=== PATIENT | male | born 1955 | race Caucasian/White ===

== ENCOUNTER 2020-08-24 14:13 | Emergency (ER) | payer MEDICARE, OTHER ==
[~2020-08-24] VITALS: Ht 177.8 cm; Wt 82.3 kg
[~2020-08-24 14:13] MED LIST: CYCLOBENZAPRINE10 MG PO; DICLOFENAC SODI75 MG PO; DOXEPIN HCL50 MG PO; HYDROCODON-ACE1 EAC8 PO; LISINOPRIL20 MG PO; VENTOLIN HFA18 GM INH; VITAMIN D250000 UNIT PO; ZOFRAN ODT4 MG PO
[2020-08-24] MEDS ORDERED: VENTOLIN HFA18 GM INH (14:57)
[2020-08-24] MEDS ORDERED: LIPITOR40 MG PO (15:55)
--- NOTE | 2020-08-25 20:35 | EKG ---
[facility] [address] [place] [address] Signed Normal sinus rhythm with sinus arrhythmia Normal ECG When compared with ECG of 05-MAR-2016 19:09, Vent. rate has decreased BY 43 BPM Confirmed by MALIKA MONTEIRO DO ([id number]) on 08/25/2020 8:34:59 PM Electronically Signed By: MALIKA MONTEIRO DO 08/25/202034 PATIENT NAME: LIN MANRIQUE MARIKA Electrocardiogram DATE OF : 57 PHYSICIAN: MALIKA MONTEIRO DO REPORT #: [id number] REPORT IS CONFIDENTIAL AND NOT TO BE RELEASED WITHOUT AUTHORIZATION
== END 2020-08-24 16:42 | disposition home or self-care (01) ==
LOC: ED 14:13
DX: I63.9 Cerebral infarction, unspecified (principal); I10 Essential (primary) hypertension; J44.9 Chronic obstructive pulmonary disease, unspecified; F17.200 Nicotine dependence, unspecified, uncomplicated
CPT/HCPCS: 70450; 70496; 70498; 71045; 80053; 80061; 83036; 84484; 85025; 85610; 85730; 93005; 93010; 99284-25; Q9967

== ENCOUNTER 2020-09-12 20:28 | Emergency (ER) | payer MEDICARE, OTHER ==
[~2020-09-12] VITALS: Ht 177.8 cm; Wt 81.7 kg
[~2020-09-12 20:28] MED LIST changes: +LIPITOR40 MG PO
--- OUTSIDE RECORDS SUMMARY | 2020-09-12 22:26 | XMS ---
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 Nely VISIT COUNT ([address] [facility] TOTAL 2 NOTE: Visits indicate total known visits. ED/C VISIT TRACKING (12 MO.) 09/12/2020 20:28 [facility] TYPE: Emergency COMPLAINT: - FALL 08/24/2020 14:13 [facility] TYPE: Emergency COMPLAINT: - POSS STROKE DIAGNOSES: - Anesthesia of skin - Chronic obstructive pulmonary disease, unspecified - Cerebral infarction, unspecified - Nicotine dependence, unspecified, uncomplicated - Essential (primary) hypertension INPATIENT VISIT TRACKING (12 MO.) No inpatient visits to display in this time frame [email or web address]
== END 2020-09-12 23:42 | disposition home or self-care (01) ==
LOC: ED 20:28
DX: S16.1XXA Strain of muscle, fascia and tendon at neck level, initial encounter (principal); S39.012A Strain of muscle, fascia and tendon of lower back, initial encounter; S40.012A Contusion of left shoulder, initial encounter; S70.12XA Contusion of left thigh, initial encounter; W18.42XA Slipping, tripping and stumbling without falling due to stepping into hole or opening, initial encounter; I10 Essential (primary) hypertension; J44.9 Chronic obstructive pulmonary disease, unspecified; F17.200 Nicotine dependence, unspecified, uncomplicated; Z88.5 Allergy status to narcotic agent; Z79.899 Other long term (current) drug therapy
CPT/HCPCS: 70450; 72100; 72125; 73030; 73552; 99284-25

== ENCOUNTER 2021-03-29 01:38 | Inpatient (IN) | payer MEDICARE, OTHER ==
[~2021-03-29] VITALS: Ht 177.8 cm; Wt 82.3 kg
--- NOTE | 2021-03-29 07:00 | NUR ---
BEDSIDE REPORT RECEIVED FROM CHELO ESCUDERO AT THIS TIME. PT ALERT AND ORIENTED. LEVOPHED INFUSING AT 5MCG/MIN UPON ARRIVAL. PT SPO2 = 100% ON ROOM AIR. THIS RN REMAINS AT BEDSIDE FOR INITIAL INTAKE ASSSESSMENT.
--- NOTE | 2021-03-29 07:46 | NUR ---
INITIAL ASSESSMENT COMPLETED. PT ALERT AND ORIENTED. LUNGS SOUND CLEAR THROUGHOUT. PT NOW ON ROOM AIR WITH SPO2=96%. HEART RATE 100-115 AT REST. BLOOD PRESSURES SYSTOLICALLY OVER 100. LEVOPHED DRIP ON STAND BY AT THIS TIME. SKIN INTACT. ALL DISTAL PULSES STRONG. PT DENIES PAIN, NAUSEA, OR DISCOMFORT. PLAN OF CARE ESTABLISHED. CALL LIGHT WITHIN REACH. WILL CONTINUE TO MONITOR.
[2021-03-29] MEDS ORDERED: METOPROLOL TART25 MG PO (08:10)
--- NOTE | 2021-03-29 09:00 | NUR ---
BREAKFAST ORDERED. VANCOMYCIN NOW INFUSING (SEE EMAR) ALONG WITH IV FLUIDS. CALL LIGHT WITHIN REACH. PT DENIES FURTHER NEEDS AT THIS TIME.
--- NOTE | 2021-03-29 09:15 | NUR ---
RT IN ROOM WITH PT AT THIS TIME TO GIVE BREATHING TX.
--- NOTE | 2021-03-29 09:23 | NUR ---
PT AMBULATED TO BATHROOM. STEADY ON HIS FEET. VOIDED 400 MLS OF CONCENTRATED URINE. PT NOW BACK IN BED EATING BREAKFAST. CALL LIGHT WITHIN REACH. WILL CONTINUE TO MONITOR.
[2021-03-29] MEDS ORDERED: CYCLOBENZAPRINE10 MG PO (09:46)
[2021-03-29] MEDS ORDERED: LEVOFLOXACIN500 MG PO (09:47)
--- NOTE | 2021-03-29 09:48 | NUR ---
MED REC COMPLETED BY PHARMACY
--- NOTE | 2021-03-29 12:21 | NUR ---
Patient assessment complete, patient denies pain at this time. Patient assisted with ambulation to the bathroom to void. Patient heart rate between 100-110 when ambulating. Patient is in bed eating lunch. Call light within reach. Will continue to monitor.
--- NOTE | 2021-03-29 12:24 | NUR ---
VANCOMYCIN COMPLETED. IV FLUIDS INFUSING, BOTH UNUSED LUMENS HEPARIN LOCKED. PT EATING LUNCH. DENIES PAIN OR DISCOMFORT. CALL LIGHT WITHIN REACH. WILL CONTINUE TO MONITOR.
--- NOTE | 2021-03-29 12:52 | EKG ---
[facility] [address] [place] [address] Signed Sinus tachycardia Otherwise normal ECG When compared with ECG of 24-AUG-2020 14:42, Vent. rate has increased BY 64 BPM Confirmed by MALIKA MONTEIRO DO ([id number]) on 03/29/2021 12:52:00 PM Electronically Signed By: MALIKA MONTEIRO DO 03/29/21 1252 PATIENT NAME: LIN MANRIQUE MARIKA Electrocardiogram DATE OF : 57 PHYSICIAN: MALIKA MONTEIRO DO REPORT #: [id number] REPORT IS CONFIDENTIAL AND NOT TO BE RELEASED WITHOUT AUTHORIZATION
--- NOTE | 2021-03-29 14:00 | NUR ---
STUDENT NURSE IN ROOM WITH PT AT THIS TIME. IV MEDICATIONS INFUSING (SEE EMAR). CALL LIGHT WITHIN REACH. PT DENIES PAIN OR DISCOMFORT. WILL CONTINUE TO MONITOR.
--- NOTE | 2021-03-29 14:00 | NUR ---
Spoke with Sanjana, who is now to me. He has moved from [place] in his camp trailer to [place]. His friend Roxanne has also moved her trailer there He needs a cane. Is able to walk very little due history of back injury. States he has prostate ca and recently underwent a biopsy. Plans on returning to his trailer in [place] when cleared medically. Only need is for a new cane. Will request orders for a cane.
--- NOTE | 2021-03-29 17:00 | NUR ---
PT EATING DINNER, IV FLUIDS INFUSING. CALL LIGHT WITHIN REACH. WILL CONTINUE TO MONITOR.
--- NOTE | 2021-03-29 17:35 | NUR ---
PT COMPLAINS OF HEADACHE, PRN TYLENOL GIVEN AT THIS TIME (SEE EMAR).
--- NOTE | 2021-03-29 19:30 | NUR ---
PATIENT REQUEST LIGHTS BE TURNED OFF. REPORTS A HEADACHE. PATIENT PREVIOUSLY HAD TYLENOL. NO OTHER NEEDS AT THIS TIME. RT IN ROOM FOR NEB. URNAL EMPTIED FOR 250 MLS.
--- NOTE | 2021-03-29 20:55 | NUR ---
PATIENT APPEARS TO BE SLEEPING WHEN RN ENTERS THE ROOM. PATIENT ALERTS TO VOICE. ALERT AND ORIENTED X4. REPORTS ONGOING HEADACHE, STATES "I USUALLY HAVE A FEW OF THESE A WEEK". DENIES NEED FOR NICOTINE OR CAFFEINE. DENIES OTHER PAIN. EJ FLUSHED, 10 ML ALL LUMENS. ALL RETURN BLOOD AND FLUSH EASY, SITE WNL. IV ABX STARTED IN 1 LUMEN, THE OTHER IVF PER ORDER, 3RD IS HEPA-LOCKED. PATIENT HAD CLEAR LUNG SOUNDS, TOLERATING ROOM AIR. VS STABLE. PATIENT IS FEELING HOT AND SWEATING, ORAL TEMP WNL. BP CUFF REMOVED PER ADIMENT PATIENT REQUEST. PRN MELATONIN PROVIDED PER REQUEST. PATIENT DENIED FURTHER NEEDS. CALL LIGHT IN REACH.
--- NOTE | 2021-03-29 23:30 | NUR ---
PATIENT PROVIDED WITH PRN TYLENOL FOR ONGOING HEADACHE AND ARTHRITIC PAIN. PATIENT REPORTS FEELING SLIGHTLY SOB BUT DOES NOT WANT A NEB TREATMENT. LUNG SOUNDS ARE CLEAR. RR 20 WITH O2 SATS 98% ON ROOM AIR. IV FLUIDS CONTINUED, EJ SITE WNL. PATIENT HAS GOOD URINE OUTPUT. VS STABLE. BP 92/52 (64) WITH PATIENT TURNED TO HIS RIGHT SIDE AND CUFF ON LEFT. HR 80-90'S.
--- NOTE | 2021-03-30 01:39 | NUR ---
EMPTIED URINE FROM THE URINAL, 300 ML. PT ASLEEP ON HIS RIGHT SIDE IN THE BED. CALL LIGHT IN REACH.
--- NOTE | 2021-03-30 04:00 | NUR ---
PATIENT APPEARS TO BE SLEEPING SOUNDLY. RR 16. HR 70'S. ALLOWED PATIENT TO REST.
--- NOTE | 2021-03-30 06:00 | NUR ---
LABS DRAWN FROM CENTRAL LINE. PATIENT HAS BEEN PULLING HIS FACIAL HAIR OUT OF THE DRESSING AND SWEATING SOME, DRESSING PARTIALLY REMOVED. AREA CLEANED AND NEW DRESSING APPLIED. REENFORCED WITH TAPE AND FACIAL HAIR ENSURED MOVED TO THE SIDE. PATIENT TOLERATED WELL. IV ABX STARTED PER ORDER. PATIENT VS SATBLE. HE REPORTS FEELING SOB, REQUEST A NEB TREATMENT WHICH WAS PROVIDED.
--- NOTE | 2021-03-30 06:37 | NUR ---
PATIENT UP TO THE BATHROOM. STEADY ON HIS FEET. MEDIUM LOOSE BM NOTED.
--- NOTE | 2021-03-30 07:30 | NUR ---
REPORT RECEIVED, PT SITTING UP IN BED WATCHING TV.
--- NOTE | 2021-03-30 07:56 | NUR ---
Change of shift report received. Patient is sitting up in the bed talking on the phone. Heart rate in the 70s. Will continue to monitor.
--- NOTE | 2021-03-30 10:29 | NUR ---
report from umair ccu rn pt going to room 108 med surg
--- NOTE | 2021-03-30 11:31 | NUR ---
PT TRANSFERRED TO MED SURG WITH DERRELL WHITNEY, PT TRANSFERRED AWAKE AND IN THE BED.
--- NOTE | 2021-03-30 11:37 | NUR ---
pt alert and oriented - to room 108 via bed from ccu - vitals wnl and pt up in bed eating lunch - oriented to new staff and call light. denies needs
--- NOTE | 2021-03-30 13:56 | NUR ---
rn let zinc furnace charger know to to get rt - pt req. a neb. tx for sob. pt void 350 ml yellow urine, 100 meal compleated.
--- NOTE | 2021-03-30 14:06 | NUR ---
rt in room for treatment. pt very talkative - abx given.
--- NOTE | 2021-03-30 17:14 | NUR ---
PT UP IN AFTER SHOWER - IV ABX FUSING WELL - DENIES NEEDS - PEPSI TO FRIDGE FOR HIM WITH HIS NAME ON IT.
--- NOTE | 2021-03-30 18:30 | NUR ---
pt requested melatonin and tylenol for sleep. denies other needs - up in ch call light in reach
--- NOTE | 2021-03-30 19:05 | NUR ---
received report from inge WHITNEY pt has taken his melatonin and tyrlenol already. pt is using urinal. mp here to give pt a cane
--- NOTE | 2021-03-30 19:30 | NUR ---
received report from Margaret whitney. pt from [place] not really answering questions to do proper assessment of history, [facility] and unable to fill in gaps at this time. Pt on covid precautions.
--- NOTE | 2021-03-30 21:38 | NUR ---
IN ROOM HANGING ABX PT REPORTING THAT HE HAS A MIGRAINE. INFORMED PT HE IS NOT DUE FOR PAIN MED YET, ASKED IF HE WANTED A COOL WASHCLOTH HE DECLINES OFFER. ROOM IS DARKENED. PT IS DRINKING FLUIDS AND VOIDING OFTEN USING URINAL. PT STATES HE MAY TRY TO GO TO SLEEP.
--- NOTE | 2021-03-30 22:38 | NUR ---
IN ROOM TO START ANTIBIOTICS, PATIENT IS REPORTING HE IS STILL HAVING MIGRAINE. PT IS ASKING FOR COFFEE. STATES IT WILL "HELP BECAUSE OF THE CAFFEINE" PT INFORMED HE CAN HAVE MORE PAIN MED IN AN HOUR OR SO, AND THAT IF HE IS STILL AWAKE AND WANTS COFFEE FOR HIS HEADACHE I WILL GET HIM SOME.
--- NOTE | 2021-03-30 23:32 | NUR ---
WENT IN TO GIVE PT COFFEE THAT HE REQUESTED. PT IS ASLEEP LYING ON HIS RIGHT SIDE. LEFT COFFEE IN ROOM LINUS; BE BACK TO CHECK ON HIM AND GIVE HIME PAIN MED WHEN HE IS ABLE TO HAVE IT. CALL LIGHT IN REACH. CEFEPIME INFUSING, SITE TO LEFT NECK WNL.
--- NOTE | 2021-03-31 00:44 | NUR ---
CHECKED ON PATIENT. HE IS ASLEEP AT THIS TIME RESTING ON HIS RIGHT SIDE. PT HAS USED URINAL AGAIN AND HAS DRANK HIS COFFE. CEFEPIME CONTINUES INFUSING. CALL LIGHT IN REACH. URINAL EMPTIED, WATER REFRESHED.
--- NOTE | 2021-03-31 01:21 | NUR ---
ANSWERED PT'S CALL LIGHT. IV PUMP BEEPING. SITE ASSED TO LEFT NECK, WNL. RESTARTED PUMP. ASKED PT HOW IS IS DOING STATES HE STILL HAS HEADACHE, PT INFORMED HE IS ABLE TO HAVE HIS PRN PAIN MED BUT HE DECLINES THIS. URINAL EMPTIED. DENIES OTHER NEEDS.
--- NOTE | 2021-03-31 03:04 | NUR ---
PT PRECISION DANCER LIGHT, IV PUMP IS BEEPING. WENT IN ASSESSED SITE TO LEFT NECK, WNL, DRESSING INTACT AND DRY. CEFEPIME IS DONE. LR INFUSING NOW. PT STATES HE IS "AWAKE FOR THE DAY NOW" PT REQUESTS COFFEE, PROVIDED THIS TO PT. DENIES ANY OTHER NEEDS,A SKE DIF HENEEEDS ANYTHING FOR PAIN STATES "NO" CALL LIGHT IN REACH. EMPTIED URINAL AGAIN.
--- NOTE | 2021-03-31 06:33 | NUR ---
PT HAS RECEIVED HIS IV ANTIBIOTICS THROUGH THE [facility]. PT HAS HAD A SLIGHT HEADACHE DURING NIGHT BUT DECLINED PRN [AIN MED AT TIMES WHEN OFFERED, WAS OBSERVED SLEEPING AT TIMES. PT HAS USED URINIAL QUITE FREQUENTLY DURING THE NIGHT, DRINKING PO FLUIDS WELL. MAINTENANCE FLUIDS INFUSING THRU JUGULAR CENTRAL LINE, WNL, DRESSING MAY NEED TO BE REPLACED AGAINFROM PT MOVEMENT.
--- NOTE | 2021-03-31 07:20 | NUR ---
bedside report from Arianne WHITNEY - pt had good night, wbc improved - chronic migraine noted last night -
--- NOTE | 2021-03-31 08:00 | NUR ---
rn to pt room, leon keita, pt eating meal - asking about dc and when dr comes in - reports he tastes metal in mouth from iv flush from earlier.
--- NOTE | 2021-03-31 09:31 | NUR ---
rn cristi blood for lab vanco from 3 lumen, good blood return and flush well.
--- NOTE | 2021-03-31 10:43 | NUR ---
BC GIVEN TO AND PHARMACY - HOLD TIFFANIE
[2021-03-31] MEDS ORDERED: AUGMENTIN 875-1 EACH PO (11:08)
--- NOTE | 2021-03-31 11:19 | NUR ---
RN DC LEFT 3 LUMEN CENTRAL LINE WNL - PT TOLL WELL. PHARMACY IN FOR DC INST.
== END 2021-03-31 11:45 | disposition home or self-care (01) | DRG 872 ==
LOC: ED 01:38 → CCU 06:11 → MS 03-30 10:38
PROVIDERS: ADMIT Student in an Organized Health Care Education/Training Program; ATTEND Student in an Organized Health Care Education/Training Program
PROC: 02HV33Z Insertion of Infusion Device into Superior Vena Cava, Percutaneous Approach (ICD-10-PCS; principal; 2021-03-29)
PROC: 3E043XZ Introduction of Vasopressor into Central Vein, Percutaneous Approach (ICD-10-PCS; 2021-03-29)
DX: A41.51 Sepsis due to Escherichia coli [E. coli] (principal); N12 Tubulo-interstitial nephritis, not specified as acute or chronic; N17.9 Acute kidney failure, unspecified; R65.20 Severe sepsis without septic shock; Z20.822 Contact with and (suspected) exposure to COVID-19; I10 Essential (primary) hypertension; E55.9 Vitamin D deficiency, unspecified; M19.90 Unspecified osteoarthritis, unspecified site; E80.6 Other disorders of bilirubin metabolism; J44.9 Chronic obstructive pulmonary disease, unspecified; F17.200 Nicotine dependence, unspecified, uncomplicated; G89.29 Other chronic pain; Z87.01 Personal history of pneumonia (recurrent); Z90.49 Acquired absence of other specified parts of digestive tract; Z98.1 Arthrodesis status; Z98.890 Other specified postprocedural states; Z88.6 Allergy status to analgesic agent; Z91.041 Radiographic dye allergy status; Z79.899 Other long term (current) drug therapy
CPT/HCPCS: 71045; 71260; 80048; 80053; 80202; 81001; 83605; 83880; 84484; 85025; 85379; 87040; 87088; 87186; 93005; 93010; 94640; 94760; 99285-25; C9803; J0692; J0696; J1100; J1200; J1650; J2405; J3370; J7030; J7060; J7121; Q9967; U0003

== ENCOUNTER 2022-05-10 15:26 | Inpatient (IN) | payer MEDICARE, OTHER ==
[~2022-05-10] VITALS: Ht 177.8 cm; Wt 81.3 kg
[~2022-05-10 15:26] MED LIST changes: +AUGMENTIN 875-1 EACH PO; +LEVOFLOXACIN500 MG PO; +METOPROLOL TART25 MG PO
[2022-05-10] MEDS ORDERED: LISINOPRIL20 MG PO (19:45)
[2022-05-10] MEDS ORDERED: METFORMIN HCL500 M2 PO (19:46)
--- NOTE | 2022-05-10 20:30 | NUR ---
REC'D PATIENT ONTO FLOOR VIA STRETCHER AFTER RECEIVING TELEPHONE REPORT FROM ED NURSE. PT AMBULATED TO THE BED WITHOUT ANY PROBLEMS. PT AOX4, NAD, C/O EPI- GASTRIC PAIN. WILL MEDICATE PER MAY. PT ORIENTED TO HOSPITAL AND ROOM. NUTRITION AIDE TO ROOM TO COMPLETE QUICK ADMIT AND HISTORY. WILL CONTINUE TO MONITOR AND FOLLOW POC.
[2022-05-10] MEDS ORDERED: LANTUS SOL100 UNIT/1 SUB-Q (20:34)
[2022-05-10] MEDS ORDERED: PROMETHAZINE HC25 M1 PO (20:35)
--- NOTE | 2022-05-10 22:00 | NUR ---
PT REPORTS PAIN IS AT ACCEPTABLE LEVEL.
--- NOTE | 2022-05-11 00:35 | NUR ---
PT REQUESTS PAIN MED. MEDICATED PER MAR. WILL CONTINUE TO MONITOR, ASSESS, AND FOLLOW POC.
--- NOTE | 2022-05-11 02:26 | NUR ---
PT STATES PAIN IS CURRENTLY AT TOLERABLE LEVEL.
--- NOTE | 2022-05-11 07:04 | NUR ---
PT WITH NO ACUTE EVENTS OVERNIGHT. VSS, NAD, CONTINUES TO NEED PAIN MEDICATION AND ANTI-EMETIC THROUGH SHIFT. STATES HE IS HAVING RELIEF WITH CURRENT REGIMEN. ENDORSED TO DAY NURSE THAT THIS DIABETIC PT DOES NOT HAVE ACCUCHECKS ORDERED, TO INQUIRE OF PHYSICIAN ABOUT AN ORDER FOR ACCUCHECKS. HANDED OFF CARE OF PT TO DAY RN DURING BEDSIDE REPORT.
--- NOTE | 2022-05-11 07:47 | NUR ---
REPORT RECEIVED FROM BRYAN WHITNEY, ALL QUESTIONS ANSWERED. PT AWAKE IN BED, DENIES NEEDS AT THIS TIME. CALL LIGHT IN REACH.
--- NOTE | 2022-05-11 08:21 | NUR ---
PT RESTING QUIETLY IN BED WITH EYES CLOSED, RESPIRATIONS EVEN AND UNLABORED. CALL LIGHT IN REACH.
--- NOTE | 2022-05-11 09:19 | NUR ---
MORNING ASSESSMENT COMPLETE. PT UP TO RESTROOM AND TO RECLINER. C/O 9/10 ABD PAIN AND NAUSEA. GIVEN PRN PAIN MEDICATION. WILL GIVEN NAUSEA MEDICATION WHEN AVAILABLE. PT AGREEABLE AT THIS TIME. EDUCATED PT ON PANCREATITIS, PT ASKS QUESTIONS AND OPEN TO LEARNING. PT DENIES FURTHER NEEDS AT THIS TIME. CALL LIGHT IN REACH. EDUCATED ON SAFETY PRECAUTIONS AND CALL LIGHT USE, PT VERBALIZED UNDERSTANDING.
--- NOTE | 2022-05-11 11:08 | NUR ---
PT C/O 10/24 PAIN AND NAUSEA, GIVEN PRN MEDICATION, SEE EMAR. PT DENIES FURTHER NEEDS AT THIS TIME. CALL LIGHT IN REACH.
--- NOTE | 2022-05-11 13:45 | NUR ---
PT C/O 09/23 PAIN, STATES NAUSEA HAS IMPROVED. GIVEN PRN PAIN MEDICATION, SEE EMAR. PT ASSISTED TO RESTROOM AND BACK TO BED. DENIES FURTHER NEEDS AT THIS TIME. CALL LIGHT IN REACH.
--- NOTE | 2022-05-11 16:56 | NUR ---
MED REC COMPLETE
--- NOTE | 2022-05-11 17:29 | NUR ---
Pt c/o 10/24 epigastric pain, given prn pain medication, see emar. Discussed safety precautions with supervised ambulation and call light use, pt verbalized understanding. Pt denies further needs at this time. Call light in reach.
--- NOTE | 2022-05-11 19:30 | NUR ---
REPORT RECEIVED FROM CHELO CAMPOVERDE. PT LAYING IN BED WATCHING TV. PT DENIES ANY NEEDS AT THIS TIME. CALL LIGHT IN REACH.
--- NOTE | 2022-05-11 20:12 | NUR ---
IN TO OBTAIN BG. CHELO GUTIÉRREZ IN ROOM ADMINISTERING MEDICATIONS, SEE MAR. ASSESSMENT COMPLETE. LUNG SOUNDS CLEAR. BOWEL TONES ACTIVE. PT REPORTING ABD PAIN 8/10 MIDLINE. PT REPORTS TENDERNESS WITH PALPATION. MILD DISTENTION NOTED. PT DENIES ANY OTHER NEEDS AT THIS TIME. CALL LIGHT IN REACH.
--- NOTE | 2022-05-12 00:10 | NUR ---
PT UTILIZES CALL LIGHT, REQUESTS TO USE THE BATHROOM. PT UP TO BATHROOM AND BACK TO BED WITH 1 PA, TOLERATED WELL. PT DENIES FURTHER NEEDS AT THIS TIME. CALL LIGHT IN REACH.
--- NOTE | 2022-05-12 02:32 | NUR ---
THIS RN NOTIFIED PT IS REQUESTING PRN PAIN MEDICATION. IN ROOM TO ADMINISTER PRN PAIN MEDICATION, SEE MAY. PT REPORTING PAIN 9/10 IN MID ABD. PT ALSO REPORTING NAUSEA. PRN NAUSEA MEDICATION ADMINISTERED, SEE MAY. BG CHECKED. PT DENIES ANY OTHER NEEDS AT THIS TIME. CALL LIGHT IN REACH.
--- NOTE | 2022-05-12 02:48 | NUR ---
IN TO ROUND ON PT. PT SITTING UP IN BED WATCHING TV. PT REPORTING PAIN 7/10 IN MID ABD. ASSESSMENT COMPLETE. LUNG SOUNDS CLEAR. BOWEL TONES ACTIVE. NO CHANGES FROM PREVIOUS ASSESSMENT. PT REPORTS NO NAUSES AT THIS TIME AFTER PRN ZOFRAN WAS ADMINISTERED. IV INFUSING WNL. PT DENIES ANY OTHER NEEDS AT THIS TIME. CALL LIGHT IN REACH.
--- NOTE | 2022-05-12 05:04 | NUR ---
VS AND I&O COMPLETED. IV FLUIDS INFUSING PER ORDER. NO OTHER NEEDS. CALL LIGHT IN REACH.
--- NOTE | 2022-05-12 06:37 | NUR ---
IN TO ROUND ON PT. PT LAYING IN BED ON LEFT SIDE. RR EVEN AND UNLABORED. PT AWAKENS WHEN ADDRESSED. NICOTINE PATCH REMOVED. PT REPORTS NO NEEDS AT THIS TIME. CALL LIGHT IN REACH.
--- NOTE | 2022-05-12 06:44 | NUR ---
THIS RN CALLED DR. GAFFNEY TO UPDATE HER OF PTs BLOOD SUGARS. NEW ORDERS RECEIVED, VERIFIED WITH READBACK.
--- NOTE | 2022-05-12 06:53 | NUR ---
IN TO HANG NEW ORDERED FLUIDS. PT LAYING IN BED ON LEFT SIDE WITH EYES CLOSED. RR EVEN AND UNLABORED. PT AWAKENS WHEN ADDRESSED. NEW FLUIDS STARTED. PT DENIES ANY OTHER NEEDS AT THIS TIME. CALL LIGHT IN REACH.
--- NOTE | 2022-05-12 07:05 | NUR ---
Report from CHELO Riojas. Patient resting in bed on right side. Respirations even and unlabored. Call light in reach, bed rails up. Allowed to rest at this time.
--- NOTE | 2022-05-12 07:38 | NUR ---
PATIENT IN BED THIS AM. ACU CHECKS COMPLETED. AM CARE COMPLETED. CALL LIGHT WITHIN REACH.
--- NOTE | 2022-05-12 09:15 | NUR ---
PATIENT SITTING IN CHAIR. VITALS AND I/O'S COMPLETED. PT IS NPO AT THIS TIME. CALL LIGHT WITHIN REACH.
--- NOTE | 2022-05-12 17:05 | NUR ---
PATIENT TOLERATING LIQUIDS WITHOUT INCREASE OF NAUSEA OR PAIN THIS AFTERNOON. DENIES NEEDS AT THIS TIME. CALL LIGHT IN REACH, BED RAILS UP.
--- NOTE | 2022-05-12 19:24 | NUR ---
REPORT RECEIVED FROM DAY SHIFT RN. PT LYING IN BED ALERT AND ORIENTED. DENIES NEEDS. WHITE BOARD UPDATED. CALL LIGHT IN REACH.
--- NOTE | 2022-05-12 21:03 | NUR ---
EVENING ASSESSMENT COMPLETE. SCHEDULED MEDS ADMIN PER EMAR. PT REPORTS ABD PAIN 11/24. PRN FOR PAIN AND NAUSEA ADMIN PER EMAR. UP TO BR TO VOID INDEPENDENTLY. GAIT STEADY. BACK TO BED, BHARGAV WELL. CLEAR LIQUIDS PROVIDED. PT DENIES QUESTIONS OR CONCERNS. CALL LIGHT IN REACH.
--- NOTE | 2022-05-12 22:41 | NUR ---
IV PUMP ALARMING. ISSUE RESOLVED. PT UP TO BR TO VOID. GAIT STEADY. BACK TO BED, BHARGAV WELL. REPORTS ABD PAIN 10/24. PRN FOR PAIN ADMIN PER EMAR. REPORTS SLIGHT NAUSEA BUT TOLERABLE. NO FURTHER NEEDS. CALL LIGHT IN REACH.
--- NOTE | 2022-05-13 01:46 | NUR ---
PT RESTING WITH EYES CLOSED. AWAKENS EASILY. SCHEDULED MEDS ADMIN. PT UP TO BR TO VOID. BACK TO BED, BHARGAV WELL. REPORTS ABD PAIN 10/24. PRN FOR PAIN ADMIN PER EMAR. PT DENIES PRN FOR NAUSEA. MRI SCREENING COMPLETE. PT NPO. IVF INFUSING WNL. NO FURTHER NEEDS.
--- NOTE | 2022-05-13 02:33 | NUR ---
PT UTILIZES CALL LIGHT, REQUESTS WASHCLOTH. [employer] BI ARCHITECT TO ROOM, PT STATES THAT HE IS DIAPHORETIC, REPORTS 8/10 CHEST PRESSURE, VS OBTAINED. NOTIFIED. EKG PERFORMED. CALL LIGHT IN PT'S REACH.
--- NOTE | 2022-05-13 02:38 | NUR ---
PT SITTING UP IN BED. PT REPORTS HISTORY OF CHEST PAIN. CHEST PAIN HAS SUBSIDED AT THIS TIME. REPORTS HE IS FEELING BETTER AND IS GOING TO TRY TO REST. NO FURTHER NEEDS.
--- NOTE | 2022-05-13 02:51 | NUR ---
DR. GAFFNEY TO FLOOR TO REVIEW EKG. UPDATED ON PT STATUS. NO FURTHER ORDERS AT THIS TIME.
--- NOTE | 2022-05-13 03:45 | NUR ---
PT RESTING IN BED WITH EYES CLOSED. RESPIRATIONS EVEN. CALL LIGHT IN REACH.
--- NOTE | 2022-05-13 05:36 | NUR ---
PT AWAKENED BY LAB. UP TO BR TO VOID. BACK TO BED. REPORTS ABD PAIN IS TOLERABLE. DENIES NAUSEA. VS AND I&O COMPLETE. NO NEEDS AT THIS TIME. CALL LIGHT IN REACH.
--- NOTE | 2022-05-13 07:24 | NUR ---
PT SITTING UP IN BED WATCHING TV AT TIME OF SHIFT REPORT. HE AGREES HE IS COMFORTABLE AND DENIES NEEDS OF. VERBALIZES UNDERSTANDING OF UPCOMING TEST TO BE AROUND 1000 AND HE REMAINS NPO. CALL LIGHT AND NEEDED ITEMS AT BEDSIDE
--- NOTE | 2022-05-13 07:54 | EKG ---
[facility] [address] [place] [address] Signed Normal sinus rhythm Low voltage QRS Borderline ECG When compared with ECG of 29-MAR-2021 01:42, Vent. rate has decreased BY 68 BPM Confirmed by JOHNNIE GAFFNEY MD ([id number]) on 05/13/2022 7:54:30 AM Electronically Signed By: JOHNNIE GAFFNEY MD 05/13/22 0754 PATIENT NAME: LIN MANRIQUE MARIKA Electrocardiogram DATE OF : 57 PHYSICIAN: JOHNNIE GAFFNEY MD REPORT #: [id number] REPORT IS CONFIDENTIAL AND NOT TO BE RELEASED WITHOUT AUTHORIZATION
--- NOTE | 2022-05-13 09:22 | NUR ---
PT TO MRI VIA W/C
--- NOTE | 2022-05-13 10:22 | NUR ---
PT BACK FROM MRI VEGETABLE SOUP ORDERED. PT RESTING IN BED DENIES DISCOMFORTS OR NEEDS OF
--- NOTE | 2022-05-13 12:01 | NUR ---
DR GAFFNEY IN TO SEE THE PT. SCAN RESULTS REVIEWED WITH HIM AND PLANS GOING FORWARD DISCUSSED. ALL QUESTIONS ANSWERED
--- NOTE | 2022-05-13 13:49 | NUR ---
PT SITTING UP IN THE CHAIR STATES HE HAD A LARGE BOWEL MOVEMENT AND FEELS BETTER. HE'S BEEN UP INDEPENDANTLY IN THE ROOM DENIES NEEDS OF
--- NOTE | 2022-05-13 13:50 | NUR ---
TALKED TO PATIENT. PATIENT STATES HE DOES NOT HAVE A RIDE HOME BECAUSE HE LIVES IN [place] AND HIS TRUCK IS AT HIS HOME. PATIENT CALLED [facility] AND ASKED FOR HELP.[facility] REFERRED HIM TO [employer] AND [facility].PATIENT PLANS TO GO HOME TO HIS TRAILER. PATIENT HAS A GIRL FRIEND NAMED DONTRELL THAT CAN HELP WHEN NEED BUT CAN NOT PICK HIM UP AT DISCHARGE. [employer] AND PROCESSES MANAGER WILL WORK WITH PATIENT TO HELP FIND A SAFE DISCHARGE PLAN. PATIENT DOES NOT WANT PLACEMENT.
--- NOTE | 2022-05-13 15:45 | NUR ---
PT UP TO THE TOILET INDPENDENTLY RETURNS TO BED WATCHING TV. DENIES NEEDS OF ANYTHING
--- NOTE | 2022-05-13 16:13 | NUR ---
ORDERS FAXED TO [facility] AT [phone] FOR SET UP OF HOME IV ABX. [facility]
--- NOTE | 2022-05-13 17:25 | NUR ---
DR CUENCA IN TO CONSULT ON PT PLAN GOING FORWARD DISCUSSED AT LENGTH. ALL QUESTIONS ANSWERED. PT HAVING FULL LIQUIDS FOR EVENING MEAL AGREES NPO AFTER MIDNIGHT.
--- NOTE | 2022-05-13 19:18 | NUR ---
REPORT RECEIVED FROM DAY SHIFT RN. PT LYING IN BED ALERT AND ORIENTED. REPORTS ABD PAIN 10/24. PRN FOR PAIN ADMIN PER EMAR WITH CINDY. NO FURTHER NEEDS. WHITE BOARD UPDATED. CALL LIGHT IN REACH.
--- NOTE | 2022-05-13 21:59 | NUR ---
EVENING ASSESSMENT COMPLETE. SCHEDULED MEDS ADMIN PER EMAR. PT REPORTS ABD PAIN 7/10 AND NAUSEA. PT REFUSED PRN FOR BOTH WHEN OFFERED, STATES "I'LL BE ALRIGHT." OFFERED WARM PACK, PT REFUSED. UP TO BR TO VOID 600 ML CLEAR YELLOW URINE. GAIT STEADY. BACK TO BED, BHARGAV WELL. IVF INFUSING PER ORDER. PT DENIES QUESTIONS OR CONCERNS. CALL LIGHT IN REACH.
--- NOTE | 2022-05-13 23:07 | NUR ---
PT LYING IN BED RESTING ON LEFT SIDE WITH EYES CLOSED. RESPIRATIONS EVEN. CALL LIGHT IN REACH.
--- NOTE | 2022-05-14 00:10 | NUR ---
PT NPO FOR UPCOMING PROCEDURE. LIQUIDS REMOVED FROM BEDSIDE TABLE.
--- NOTE | 2022-05-14 02:05 | NUR ---
PT RESTING ON LEFT SIDE WITH EYES CLOSED. RESPIRATIONS EVEN. URINAL EMPTIED. CALL LIGHT IN REACH.
--- NOTE | 2022-05-14 04:25 | NUR ---
PT AWAKE IN BED. VS AND I&O OBTAINED. PT REPORTS ABD PAIN 7/10 AND NAUSEA. REFUSES PRN FOR PAIN AND N/V WHEN OFFERED. WARM COMPRESS PROVIDED. PT NPO. ORAL SWABS PROVIDED. IVF INFUSING WNL. SURGICAL CONSENT SIGNED. PT DENIES QUESTIONS OR CONCERNS. CALL LIGHT IN REACH.
--- NOTE | 2022-05-14 05:58 | CONS ---
[facility] [address], [place] [address] Signed DATE OF CONSULTATION: 05/13/2022 CHIEF COMPLAINT: Epigastric abdominal pain. HISTORY OF PRESENT ILLNESS: Abrahan is a 66-year-old gentleman, who has had two weeks of upper abdominal pain. He said it became quite severe. He came to emergency room for evaluation. In the emergency room, his white count was 10, and his other labs were all negative. He is allergic to iodinated contrast. He therefore had a noncontrasted CT scan of abdomen and pelvis performed. The gallbladder, liver, and bile ducts were all fine. He had some questionable edema around the head and body of the pancreas. He has an abdominal aortic aneurysm at 3.4 cm. He has a left inguinal hernia containing fat. He then had an MRCP the next day and again the bile ducts were unremarkable. The gallbladder is unremarkable. The pancreatic duct is unremarkable. He has several tiny 3 mm pancreatic cysts and again an abdominal aortic aneurysm about 3.6 cm in diameter, although the lumen seems to be stenosed. He describes having weakness and collapsing in his legs if he walks too quickly or very far. He does not describe classic claudication, however. He has been admitted to the Medical Service, and he says he is markedly improved in the last three days. In fact, he was asking me to move from clear liquids on up to the diet. I have been asked to see him because apparently he tried full liquid diet and it did not go well. Consequently, there was consideration for upper endoscopy. PAST MEDICAL HISTORY: Hypertension, pruritus, vitamin D deficiency, pneumonia, chronic pain, osteoarthritis, hepatitis C virus, COPD, and left inguinal hernia. PAST SURGICAL HISTORY: He had prostate biopsy done by Dr. Aguilera and apparently one septic and had to be in the hospital with antibiotics. We talked about his left femur fracture, his cervical fusion with metal in his neck, and his appendectomy. SOCIAL HISTORY: He smokes cigarettes and marijuana. He quit drinking alcohol 32 years ago and said he was an alcoholic back then. He lives in [place], now with his girlfriend in a trailer and he also has a 5th wheel. He is retired because of his disability. 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 He still can drive his car and truck around. He has two children and four step children. FAMILY HISTORY: Dad of an CO at 72. REVIEW OF SYSTEMS: Electronically Signed By: GABRIEL CUENCA MD 05/14/22 0558 PATIENT NAME: ABRAHAN MANRIQUE MARIKA CONSULTATION DATE OF : 57 REPORT #: [id number] PHYSICIAN: GABRIEL CUENCA MD PCP: SHANTELLE HOWELL MD REPORT IS CONFIDENTIAL AND NOT TO BE RELEASED WITHOUT AUTHORIZATION [address] [address] Signed He had 10 systems reviewed. He talked to me about ambulating and losing strength in his legs and collapsing to the ground. He really needs to have the abdominal aortic aneurysm looked at by a vascular surgeon. They are about an hour away. ALLERGIES: Iodinated contrast and morphine. MEDICATIONS: Augmentin, albuterol, metoprolol, and Flexeril. PHYSICAL EXAMINATION: VITAL SIGNS: His blood pressure is 165/81, heart rate 66, respiratory rate 16, temperature is 97.9, and he is 95% on room air. He is 5 feet 10 inches, 81 kg. GENERAL: Abrahan is a 66-year-old gentleman, who does not appear systemically ill or toxic. He is sitting supine semi-recumbent in his hospital bed, watching TV. He has a very long full face teejda and mustache. LUNGS: Clear to auscultation bilaterally. HEART: Regular rate and rhythm, without murmurs. ABDOMEN: Flat with minimal epigastric tenderness. He is in no acute distress. LABORATORY DATA: His white blood count was 10, is now 6.7; mean cell volume is 89; hemoglobin 15; and platelets are 212. BUN and creatinine of 7 and 1.0. Blood sugars were running 77-226. Calcium is 8.8. COVID was negative. Lipase was 56, total bilirubin 1.6, AST 19, ALT 29, alkaline phosphatase 116, albumin 3.8. Triglycerides are 106. CA19-9 was 12, which is normal. RADIOGRAPHIC STUDIES: CT scan of abdomen and pelvis was unremarkable with respect to the gallbladder and the bile ducts, but did show some questionable edema in the head and body of the pancreas. He does have an abdominal aortic aneurysm at 3.4 cm and a left inguinal hernia containing fat. The MRCP showed similar findings with negative gallbladder, negative bile ducts and negative pancreatic duct several small 3 mm pancreatic cyst and again his abdominal aortic aneurysm at 3.6 cm appears to be a little stenosed in the lumen. ASSESSMENT AND PLAN: This is a 66-year-old gentleman, who appears to have resolving pancreatitis for unclear reasons. He has not drank anything in 32 years. He may have passed a tiny gallstone and is just not aware of it. Given the severity of his pain, it could have been biliary colic, but it could have been pancreatitis, although he would have recovered rather significantly over three days in that regard. Plus the CT scan was not overly concerning. I explained Abrahan, I have been asked to see him for consideration of upper endoscopy. It is certainly reasonable to see if he has an ulcer or any gastritis. I reviewed with him the nature of the test along with the risks including, but not Electronically Signed By: GABRIEL CUENCA MD 05/14/22 0558 PATIENT NAME: ABRAHAN MANRIQUE CONSULTATION DATE OF : 57 REPORT #: [id number] PHYSICIAN: GABRIEL CUENCA MD PCP: SHANTELLE HOWELL MD REPORT IS CONFIDENTIAL AND NOT TO BE RELEASED WITHOUT AUTHORIZATION [facility] [address], [place] [address] Signed limited to gas bloating, crampy abdominal pain, bleeding, perforation requiring surgery, and missed diagnosis. He has expressed understanding, would like to proceed. We will add him given his neck surgery and his full-face mustache and tejeda when I asked for anesthesia provider to help us with increased monitoring and sedation with propofol. It will also help significantly with his history of daily marijuana. He has expressed understanding and would like to proceed. Gabriel Cuenca MD ALB/MODL /[id number] cc: Gabriel Cuenca MD Patient Chart Shantelle Howell MD Copies: GABRIEL CUENCA MD, ROBERT D DMD ~ Electronically Signed By: GABRIEL CUENCA MD 05/14/22 0558 PATIENT NAME: ABRAHAN MANRIQUE CONSULTATION DATE OF : 57 REPORT #: [id number] PHYSICIAN: GABRIEL CUENCA MD PCP: SHANTELLE HOWELL MD REPORT IS CONFIDENTIAL AND NOT TO BE RELEASED WITHOUT AUTHORIZATION
--- NOTE | 2022-05-14 07:25 | NUR ---
PT SITTING UP IN THE CHAIR AT TIME OF SHIFT REPORT. HE CONTINUES NPO AWAITING SCOPE. CALL LIGHT AND NEEDED ITEMS AT CHAIRSIDE HE DENIES DISCOMFORTS
--- NOTE | 2022-05-14 08:46 | NUR ---
PT REMAINS NPO. UP TO SHOWER THEN TO CHAIR AWAITING O/R CREW FOR SCOPE. PT CONTINUES TO BE WITHOUT C/O PAIN OR NAUSEA.
--- NOTE | 2022-05-14 09:40 | NUR ---
PT IN SCOPE ROOM AT THIS TIME
--- NOTE | 2022-05-14 11:10 | NUR ---
PT BACK TO ROOM VIA ERICA, SELF TRANFERS TO BED. DENIES DISCOMFORTS
--- NOTE | 2022-05-14 11:18 | NUR ---
FRESH H20 TO BEDSIDE. PT ASKING WHEN HE CAN GO HOME, WHEN WILL DOC BE IN, WHEN ARE TEST RESULTS ETC. ENCOURAGED PT TO REST FOR A TIME AND CALL FOR ANY NEEDS
--- NOTE | 2022-05-14 12:18 | NUR ---
05/14/22 1218 [address] 1047 PT ARRIVED IN PACU WIDE AWAKE WITH NO C/O'S. 1100 DR AT BEDSIDE. ALL QUESTIONS ANSWERED. 1105 TO ROOM 115. REPORT GIVEN TO RN.
--- NOTE | 2022-05-14 12:24 | NUR ---
PT TAKEN TO SURGERY, WILL FOLLOW
--- NOTE | 2022-05-14 12:25 | NUR ---
CALLED [facility] AND LEFT A MESSAGE FOR A RIDE TO [place] POSSIBLY FOR TOMORROW IF THE PATIENT IS DISCHARGED. ALSO PATIENT DOES NOT HAVE MONEY TO HEAT HIS HOUSE. PATIENT DOES HAVE A GIRLFRIEND THAT LIVES IN [place] THAT HE MAY NEED TO STAY WITH HER. WILL SUGGEST THAT PATIENT CALL HIS GIRFRIEND AND TO STAY WITH HER.
--- NOTE | 2022-05-14 12:38 | NUR ---
DR ARCINIEGA IN TO SEE PT DX'S AND F/U NEEDS DISCUSSED AT LENGTH ALL QUESTIONS ANSWERED. DC ICE CREAM FREEZER HELPER IN TO SEE PT TO ASSIST WITH TRANSPORT NEEDS
[2022-05-14] MEDS ORDERED: OMEPRAZOLE20 MG PO (12:41)
[2022-05-14] MEDS ORDERED: NICOTINE1 EAC2 TD (12:41)
--- NOTE | 2022-05-14 14:00 | NUR ---
ALL DC INSTURCTIONS GIVEN AND TRANSPORT ARRANGED. PT RESTING NOW WAITING FOR SPORT INTERN
--- NOTE | 2022-05-14 15:59 | NUR ---
pt sitting up in the chair waiting for transport, denies needs or discomforts.
--- NOTE | 2022-05-15 07:24 | OR ---
[facility] [address], [place] [address] Signed DATE OF OPERATION: 05/13/2022 SURGEON: Gabriel Cuenca MD PREOPERATIVE DIAGNOSES: 1. Resolving pancreatitis. 2. Epigastric abdominal pain. 3. Smoker (cigarettes, marijuana). POSTOPERATIVE DIAGNOSES: 1. Mild diffuse gastroduodenitis. 2. Small hiatal hernia. 3. Distal esophageal Schatzki's ring. PROCEDURES: EGD with CLOtest and biopsies of the bulb, antrum and GE junction. ESTIMATED BLOOD LOSS: None. INDICATIONS: Abrahan is a 66-year-old gentleman, who has had two weeks of upper abdominal pain. He said it became quite severe. He therefore came to the emergency room for evaluation. His white count and labs were not particularly concerning. He had a noncontrasted CT scan of abdomen and pelvis and really this only showed some mild edema around the head and body of the pancreas. He also has an abdominal aortic aneurysm at 3.4 cm. He had been admitted to the Internal Medicine Service. He then underwent an MRCP with similar findings. In particular, the liver, gallbladder and bile ducts and pancreatic duct were not particularly concerning. There were no gallstones noted and again he has abdominal aortic aneurysm at 3.6 cm. However, the lumen seems to be stenosed and he does talk about weakness and collapsing of his legs if he walks very far. He really should see a vascular surgeon in that regard. He said the last three days he is actually markedly improved. He was trying to have full liquid diet yesterday, it was not going well. Therefore, the Medical Service asked me to see him in consultation for consideration of upper endoscopy. I had met with him in the hospital. We reviewed the above findings in detail. I explained to him the nature of an upper endoscopy. He understands there is risk including, but not limited to gas bloating, crampy abdominal pain, bleeding, perforation requiring surgery, and missed diagnosis. In addition, because of his full face, mustache and tejeda, his frail nature and his fuse neck along with his daily smoking including his marijuana and oxycodone, we had asked for monitored anesthesia Electronically Signed By: GABRIEL CUENCA MD 05/15/22 0724 PATIENT NAME: ABRAHAN MANRIQUE MARIKA OPERATIVE REPORT DATE OF : 57 REPORT #: [id number] PHYSICIAN: GABRIEL CUENCA MD PCP: SHANTELLE HOWELL MD REPORT IS CONFIDENTIAL AND NOT TO BE RELEASED WITHOUT AUTHORIZATION [facility] [address], [place] [address] Signed care with propofol infusion. That proved to be a galvan decision. PROCEDURE NOTE: Abrahan was taken into our endoscopy suite and placed in the supine semi-recumbent position. The posterior oropharynx was anesthetized with Hurricaine spray. A bite block was utilized for the case. The adult gastroscope was introduced and he gave us a bit of trouble because of all the saliva that he was producing. We suctioned that out and made our way down the esophagus and out into the duodenum. The duodenum was unremarkable. He did have some mild diffuse inflammatory changes in the pyloric bulb as well as the stomach. We went ahead and took a biopsy of the pyloric bulb as well as the antrum for pathologic review. Another biopsy came out of the antrum for CLOtest. We did not see any ulcerations. Upon retroflexion of the scope, he appears to have just a small hiatal hernia. In fact, the hiatal hernia was seen better from above. He had produced so much saliva that we would literally have to withdraw the scope, suction out his posterior oropharynx and bag him up to bring his O2 sats back up. Once he settled down, I reintroduced the scope back down in the stomach. We then brought it back and we could see that he has a small hiatal hernia from above. It looks like he has a Schatzki's ring in his distal esophagus. He gave me no history of dysphagia. We went ahead and took a biopsy along the edge of the ring. We saw no evidence of an ulcer or Ibis-Weaver tear or other lesion in the hiatal hernia. There was no Burton's mucosa and no distal esophagitis. The middle and upper esophagus were unremarkable. After this, the gas was suctioned out and the gastroscope was removed. Abrahan tolerated the procedure quite well. RECOMMENDATIONS: Abrahan will be returning to his room on the Medical Service. He will be allowed a soft diet. He needs to be counseled on smoking cessation. He can follow up in my office in 7 to 14 days for review of the findings and the biopsy results. Gabriel Cuenca MD [facility] /[id number] cc: Shantelle Howell MD Electronically Signed By: GABRIEL CUENCA MD 05/15/22 0724 PATIENT NAME: ABRAHAN MANRIQUE MARIKA OPERATIVE REPORT DATE OF : 57 REPORT #: [id number] PHYSICIAN: GABRIEL CUENCA MD PCP: SHANTELLE HOWELL MD REPORT IS CONFIDENTIAL AND NOT TO BE RELEASED WITHOUT AUTHORIZATION [address] [place], [place] [address] Signed Gabriel Cuenca MD Copies: SHANTELLE HOWELL DMD, ANDREW L MD ~ Electronically Signed By: GABRIEL CUENCA MD 05/15/22 0724 PATIENT NAME: ABRAHAN MANRIQUE OPERATIVE REPORT DATE OF : 57 REPORT #: [id number] PHYSICIAN: GABRIEL CUENCA MD PCP: SHANTELLE HOWELL MD REPORT IS CONFIDENTIAL AND NOT TO BE RELEASED WITHOUT AUTHORIZATION
--- NOTE | 2022-05-16 15:00 | PATH ---
[facility] [address], [place] [address] Signed SPECIMEN(S): A PYLORIC CHANNEL BIOPSY SPECIMEN(S): B ANTRUM/PYLORUS BIOPSY SPECIMEN(S): C GE JUNCTION SPECIMEN SOURCE: A. PYLORIC CHANNEL BIOPSY B. ANTRUM/PYLORUS BIOPSY C. GE JUNCTION CLINICAL HISTORY: Epigastric pain, pancreatitis, abdominal pain. Postop Dx: Gastroduodenitis. FINAL PATHOLOGIC DIAGNOSIS: A. Pylori channel biopsy: - Benign duodenal mucosa, negative for increased epithelial chronic inflammation. - Preserved villous architecture. B. Antrum / pylorus biopsy: - Benign gastric-type mucosa with focal slight chronic inflammation. - Negative for evidence of helicobacter organisms on routine HE stained sections. C. GE junction, biopsies: - Benign esophageal and gastric-type mucosa with focal specialized intestinal (goblet cell) metaplasia, negative for dysplasia. JVR:[facility]:C2NR MICROSCOPIC EXAMINATION: Histologic sections of all submitted blocks are examined by light microscopy. These findings, together with the gross examination, support the pathologic diagnosis. GROSS DESCRIPTION: A. The specimen, labeled and designated "Jennifer, pyloric channel antrum biopsy," is received in formalin and consists of one nix soft tissue fragment, 0.2 cm. Entirely submitted in (A1). B. The specimen, labeled and designated "[facility] [place], antral biopsy," is received in formalin and consists of one nix soft tissue fragment, 0.3 cm. Entirely submitted in (B1). C. The specimen, labeled and designated "Jennifer, GE junction biopsy," is received in formalin and consists of one nix soft tissue fragment, 0.3 cm. Entirely submitted in (C1). PATIENT NAME: LIN MANRIQUE PATHOLOGY DATE OF : 57 REPORT #: [id number] PHYSICIAN: JEANETTE PINZON PCP: SHANTELLE HOWELL MD REPORT IS CONFIDENTIAL AND NOT TO BE RELEASED WITHOUT AUTHORIZATION [facility] [address] [place], [place] [address] Signed JS (under the direct supervision of a pathologist) The Gross Description was prepared using a voice recognition system. The report was reviewed for accuracy; however, sound-alike word errors, addition and/or deletions may occur. If there is any question about this report, please contact Client Services. PERFORMING LABORATORY: The technical component was performed by [email or web address], [address] [place] [id number] (CLIA# [id number]). Professional interpretation was performed by [email or web address], [address] [place] [id number] (CLIA#: [id number]). Diagnostician: Linden Mansfield MD Pathologist Electronically Signed 05/16/2022 Copies: ~ PATIENT NAME: LIN MANRIQUE PATHOLOGY DATE OF : 57 REPORT #: [id number] PHYSICIAN: JEANETTE PATHOLOGY PCP: SHANTELLE HOWELL MD REPORT IS CONFIDENTIAL AND NOT TO BE RELEASED WITHOUT AUTHORIZATION
== END 2022-05-14 16:25 | disposition home or self-care (01) | DRG 392 ==
LOC: ED 15:26 → MS 18:56
PROVIDERS: ADMIT Internal Medicine; ATTEND Internal Medicine
PROC: 0DB78ZX Excision of Stomach, Pylorus, Via Natural or Artificial Opening Endoscopic, Diagnostic (ICD-10-PCS; principal; 2022-05-13)
PROC: 0DB38ZX Excision of Lower Esophagus, Via Natural or Artificial Opening Endoscopic, Diagnostic (ICD-10-PCS; 2022-05-13)
DX: K29.90 Gastroduodenitis, unspecified, without bleeding (principal); K86.3 Pseudocyst of pancreas; Z20.822 Contact with and (suspected) exposure to COVID-19; K22.2 Esophageal obstruction; I71.40 Abdominal aortic aneurysm, without rupture, unspecified; I10 Essential (primary) hypertension; E11.9 Type 2 diabetes mellitus without complications; E78.5 Hyperlipidemia, unspecified; G89.29 Other chronic pain; E55.9 Vitamin D deficiency, unspecified; M54.9 Dorsalgia, unspecified; K44.9 Diaphragmatic hernia without obstruction or gangrene; J44.9 Chronic obstructive pulmonary disease, unspecified; F17.210 Nicotine dependence, cigarettes, uncomplicated; M19.90 Unspecified osteoarthritis, unspecified site; B19.20 Unspecified viral hepatitis C without hepatic coma; Z98.1 Arthrodesis status; Z98.890 Other specified postprocedural states; Z71.6 Tobacco abuse counseling; Z90.49 Acquired absence of other specified parts of digestive tract; Z87.01 Personal history of pneumonia (recurrent); Z88.6 Allergy status to analgesic agent; Z91.041 Radiographic dye allergy status; Z79.4 Long term (current) use of insulin; Z79.899 Other long term (current) drug therapy
CPT/HCPCS: 00731; 36415; 74176; 74183; 80048; 80053; 80061; 81001; 83036; 83690; 83735; 84100; 84478; 85025; 86301; 87077; 88305; 93005; 93010; 96361; 96374; 96375; 96376; 99285-25; 99406; A9270; A9579; C9113; C9803; J0780; J1170; J1650; J1815; J2405; J2704; J7030; J7042; U0003

== ENCOUNTER 2023-02-03 19:07 | Observation (INO) | payer MEDICARE, OTHER ==
[~2023-02-03] VITALS: Ht 177.8 cm; Wt 73.7 kg
[~2023-02-03 19:07] MED LIST changes: +LANTUS SOL100 UNIT/1 SUB-Q; +METFORMIN HCL500 M2 PO; +NICOTINE1 EAC2 TD; +OMEPRAZOLE20 MG PO; +PROMETHAZINE HC25 M1 PO
[2023-02-03 19:27] LABS: PH, VENOUS 7.382 (7.31-7.41)
[2023-02-03 19:30] LABS: BASOPHILS 0.6 % (0-2); EOSINOPHILS 0.1 % (0-6); HEMATOCRIT 47.5 % (35.0-50.0); HEMOGLOBIN 16.2 g/dL (12.0-18.0); LYMPHOCYTES 14.8 % (24-44); MCH 30.6 (27-36); MCHC 34.1 g/dl (30-36); MCV 89.7 fl (81-99); NEUTROPHILS 74.5 % (39-80); PLATELET COUNT 214 K/uL (140-440); RBC 5.29 M/ul (4.3-5.7); RDW 13.6 (10.5-15.0)
[2023-02-03 19:39] LABS: BILIRUBIN, URINE NEGATIVE (negative); BLOOD/HGB, URINE MODERATE (Negative); KETONE, URINE SMALL (Negative); LEUK ESTERASE, URINE NEGATIVE (negative); NITRITE, URINE NEGATIVE (negative)
[2023-02-03 19:46] LABS: AMPHETAMINES, URINE POSITIVE (NEGATIVE); BARBITURATES, URINE NEGATIVE (NEGATIVE); BENZODIAZEPINE, URINE NEGATIVE (NEGATIVE); BUPRENORPHINE, URINE NEGATIVE (NEGATIVE); CANNABINOID, URINE POSITIVE (NEGATIVE); COCAINE, URINE NEGATIVE (NEGATIVE); ECSTASY, URINE NEGATIVE (NEGATIVE); FENTANYL, URINE NEGATIVE (NEGATIVE); METHADONE, URINE NEGATIVE (NEGATIVE); OPIATES, URINE NEGATIVE (NEGATIVE); OXYCODONE, URINE NEGATIVE (NEGATIVE); PHENCYCLIDINE, URINE NEGATIVE (NEGATIVE)
[2023-02-03 19:50] LABS: BACTERIA, URINE NONE SEEN /hpf (negative); CASTS, URINE NONE SEEN \\lpf; CRYSTALS, URINE NONE SEEN (0-1+); EPITHELIAL CELLS, URINE 0 /lpf (0-1+); RED BLOOD CELLS, URINE 0-1 /hpf (0-5); REFLEX CULTURE, URINE No (No)
[2023-02-03 19:51] LABS: COLLECTION TYPE, URINE CLEAN CATCH
[2023-02-03 20:11] LABS: ALBUMIN 3.7 g/dL (3.4-5.0); ALBUMIN/GLOBULIN RATIO 0.97 (1.1-2.4); ANION GAP 15.2 (7-21); BILIRUBIN, TOTAL 4.8 ng/dL (0.2-1.0); BUN/CREATININE RATIO 15.65 (6.0-28.6); CREATININE, SERUM 1.15 mg/dL (0.70-1.30); POTASSIUM 3.2 mmol/L (3.5-5.1); PROTEIN, TOTAL 7.5 g/dL (6.4-8.2)
[2023-02-03 20:37] LABS: INFLUENZA B NAA NEGATIVE (NEGATIVE); RESPIRATORY SYNCYTIAL VIR NAA NEGATIVE (NEGATIVE)
[2023-02-04 00:11] VITALS: BP 174/98
--- NOTE | 2023-02-04 00:42 | NUR ---
PT ARRIVES TO FLOOR VIA STRETCHER. PT GOWN AND LINEN SATURATED WITH URINE. PT CLEANED, NEW GOWN PLACED, AND PT MOVED TO HOSPITAL BED. PT ALERT, DOES NOT ANSWER QUESTIONS MEANINGFULLY, PT OCCASIONALLY STATES "OW" AND OTHER EXPLATIVES DURING CARES. LUNG SOUNDS CLEAR. HR REGULAR. BT'S ACTIVE. VARIOUS SCABS SCATTERED TO PT'S BLES. IV FLUSHED WITH 10 ML NS. WNL, PATENT. IVF INITIATED ORDERED. PRN MEDICATION ADMINISTERED. SEE EMAR.
--- NOTE | 2023-02-04 01:31 | NUR ---
PSYCH NURSE TO ROOM FOR SCHEDULED MEDCIATION ADMINISTRATION. PT DOES NOT WAKE WHILE PSYCH NURSE AT BEDSIDE, SNORING AUDIBLY. RESPIRATIONS EVEN AND UNLABORED. CALL LIGHT IN REACH. ROOM IN VIEW OF RN STATION WITH CURTAIN OPEN. BED ALARM ACTIVE.
--- NOTE | 2023-02-04 02:38 | NUR ---
BELT BUILDER TO ROOM FOR IV PUMP ALARMING. PT PATS BELT BUILDER'S HAND WHEN BELT BUILDER STRAIGHTENS PT'S ARM. BELT BUILDER EXITS THE ROOM PT ATTEMPTS TO SIT UP IN BED. STATES HE HAS TO GO TO THE BATHROOM. ASSISTED PT TO USE THE URINAL. PT ASKED IF HE KNOWS WHERE HE IS, PT STATES IN HIS TRAILER. PT REORIENTED, BELT BUILDER EXPLAINS HE IS IN THE HOSPITAL. PT ASKS "WHAT THE HELL FOR". FURTHER ORIENTATION PROVIDED. PT STATES THAT HE HAS BEEN SICK WITH NAUSEA AND DIARRHEA RECENTLY. PT ASSISTED BACK TO BED. WARM BLANKETS PROVIDED. BED ALARM REACTIVATED. PT DENIES FURTHER NEEDS AT THIS TIME. CALL LIGHT IN REACH. ROOM IN VIEW OF RN STATION.
[2023-02-04 05:06] VITALS: BP 140/54
[2023-02-04 05:45] LABS: BASOPHILS 0.8 % (0-2); EOSINOPHILS 0.7 % (0-6); HEMATOCRIT 45.8 % (35.0-50.0); HEMOGLOBIN 15.8 g/dL (12.0-18.0); LYMPHOCYTES 25.3 % (24-44); MCHC 34.5 g/dl (30-36); MONOCYTES 10.8 % (0-12); NEUTROPHILS 62.4 % (39-80); PLATELET COUNT 199 K/uL (140-440); RBC 5.09 M/ul (4.3-5.7); RDW 13.6 (10.5-15.0)
[2023-02-04 05:55] LABS: BUN/CREATININE RATIO 14.54 (6.0-28.6); CALCIUM 8.4 mg/dL (8.5-10.1); CREATININE, SERUM 1.1 mg/dL (0.70-1.30)
--- NOTE | 2023-02-04 07:09 | NUR ---
VERBAL REPORT RECIEVED FROM CHELO GUTIÉRREZ. PT RESTS WITH EYES CLOSED IN RECLINER, RESP EVEN AND UNLABORED, 16 RPM.
[2023-02-04] MEDS ORDERED: OMEPRAZOLE40 MG PO (07:55)
--- NOTE | 2023-02-04 08:13 | NUR ---
IV TO SALINE LOCK PER DR. PETTY.
--- NOTE | 2023-02-04 09:02 | NUR ---
PT RESTS IN BED, EASILY ROUSES, STATES HE IS NOT HUNGRY AT THIS TIME. BREAKFAST AT BEDSIDE.
--- NOTE | 2023-02-04 09:19 | NUR ---
Patient lying in bed with eyes closed, respirations even and unlabored. DOes not wake to staff entering room. Allowed to rest. Unable to complete assessment at this time.
[2023-02-04 09:37] VITALS: BP 147/77
--- NOTE | 2023-02-04 10:00 | NUR ---
MED REC COMPLETE
--- NOTE | 2023-02-04 10:45 | NUR ---
PT RESTS IN BED, DROWSY. LAB STAFF INTO DRAW SAMPLE, PT TOLERATES THIS WELL.
[2023-02-04 10:59] LABS: ANION GAP 12.3 (7-21); BUN/CREATININE RATIO 13.2 (6.0-28.6); CALCIUM 8.4 mg/dL (8.5-10.1); CREATININE, SERUM 1.06 mg/dL (0.70-1.30); POTASSIUM 3.3 mmol/L (3.5-5.1)
--- NOTE | 2023-02-04 12:51 | NUR ---
PT AWAKE AND ALERT, IN BED. VISITOR IN ROOM. PT REQUESTS GRILLED SANDWICH, SANDWICH ORDERED FROM DIETARY.
--- NOTE | 2023-02-04 14:28 | NUR ---
PT AAOX4. EATS 100% OF LUNCH. DISCUSSED DISCHARGE INSTRUCTIONS WITH PT, PT VERBALIZES UNDERSTANDING. IV REMOVED, TIP INTACT, GAUZE AND COBAN DRESSING APPLIED TO SITE. PT TOLERATED WELL. VSS. PT SHOWERS SELF AND DRESSES SELF. PT LEAVES UNIT VIA WHEEL CHAIR ESCORTED BY MURALI Neil RN TO PRIVATE CAR DRIVEN BY FRIEND.
--- NOTE | 2023-02-04 15:08 | EKG ---
[facility] [address] [facility] [place] [facility] [place] [address] Signed Normal sinus rhythm Possible Left atrial enlargement Borderline ECG When compared with ECG of 13-MAY-2022 02:22, Vent. rate has increased BY 37 BPM Confirmed by KATHY PETTY MD ([id number]) on 02/04/2023 3:08:38 PM Electronically Signed By: KATHY PETTY 02/04/23 1508 PATIENT NAME: LIN MANRIQUE MARIKA Electrocardiogram DATE OF : 57 PHYSICIAN: KATHY PETTY REPORT #: [id number] REPORT IS CONFIDENTIAL AND NOT TO BE RELEASED WITHOUT AUTHORIZATION
== END 2023-02-04 14:47 | disposition home or self-care (01) ==
LOC: ED 19:07 → MS 19:08 → ED 23:27 → MS 23:27
PROVIDERS: Family Medicine; ADMIT Internal Medicine; ATTEND Internal Medicine
DX: E11.649 Type 2 diabetes mellitus with hypoglycemia without coma (principal); F17.200 Nicotine dependence, unspecified, uncomplicated; I10 Essential (primary) hypertension; D72.829 Elevated white blood cell count, unspecified; F12.10 Cannabis abuse, uncomplicated; F15.10 Other stimulant abuse, uncomplicated; E87.1 Hypo-osmolality and hyponatremia; Z11.52 Encounter for screening for COVID-19; Z20.822 Contact with and (suspected) exposure to COVID-19; E87.6 Hypokalemia; Z78.1 Physical restraint status; Z88.5 Allergy status to narcotic agent; Z91.041 Radiographic dye allergy status; Z79.899 Other long term (current) drug therapy; Z79.84 Long term (current) use of oral hypoglycemic drugs; Z79.4 Long term (current) use of insulin
CPT/HCPCS: 36415; 51702; 70450; 71045; 80048; 80053; 80307; 81001; 82010; 82140; 82803; 83735; 84484; 85025; 87502; 93005; 93010; 99285-25; A9270; C9113; G0378; G0480; J1630; J2250; J7030; J7121; U0002